=== PATIENT | male | born 1975 | race Caucasian/White ===

== ENCOUNTER 2022-06-18 10:30 | Observation (INO) | payer OTHER ==
[2022-06-18] MEDS ORDERED: BABY ASPIRIN 81 MG CHEW PO ONE (10:48)
[2022-06-18 10:56] LABS: Absolute Neutrophil Ct (ANC) 3.49 x10^3/uL (1.4-6.9); BASOPHIL % 0.5 % (0.0-0.4); Basophil (Absolute #) 0.03 x10^3/uL (0-0.4); Eosinophil % 1.9 % (0.00-5.0); Eosinophil (Absolute #) 0.12 x10^3/uL (0-0.5); Hemoglobin 11.5 g/dL (12.5-18.0); IMMATURE GRAN # 0.02 x10^3u/L (0.00-0.03); IMMATURE GRAN % 0.3 % (0.00-0.4); Lymphocyte (Absolute #) 2.05 x10^3/uL (1.0-4.6); Lymphocytes % 32.3 % (24.0-44.0); Mean Cell Volume 73.6 fL (78-100); Mean Corpuscular Hemoglobin 22.3 pg (26-32); Mean Corpuscular Hgb Concent. 30.3 g/dL (32-36); Mean Platelet Volume 9.9 fL (7.5-11.0); Monocyte (Absolute #) 0.63 x10^3/uL (0.0-1.3); Monocytes % 9.9 % (0.0-12.0); Neutrophil % 55.1 % (36.0-66.0); Platelet Count 259 x10^3/uL (150-450); Red Blood Count 5.16 x10^6/uL (4.1-5.6); Red Cell Distribution Width 16.7 % (11.5-14.0); White Blood Count 6.3 x10^3/uL (4.0-10.5)
--- NOTE | 2022-06-18 11:05 | XRAY ---
Indication: Chest pain. Comparison: None Portable chest demonstrates cardiomegaly. No focal infiltrate, consolidation, or large effusion. Bony thorax intact.
--- NOTE | 2022-06-18 11:12 | ERPHSYRPT ---
- History of Present Illness Historian: patient Exam Limitations: no limitations Patient Subjective Stated Complaint: Chest pain Triage Nursing Assessment: Patient ambulated back to ED and transferred self to bed. Patient A+OX 3. Patient's skin pink, warm and dry. Patient complains of mid chest pain that went up into chest that started around 0955. Patient states he took Rolaids X 2 with slight relief. Patient states during chest pain he felt a heavy pressure to chest with nausea and lightheadness. Patient currently denies pain or discomfort. 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 Pain resolved after 20 minutes. It radiated to his superior chest. Pain was up to a 9/10 and is currently 0/10. It was accompanied by nausea/dyspnea wo vomiting/diaphoresis. CAD/RI/PE are denies, but he has JONAS/HTN/DM/morbid obesity. Cough/fever are also denied. Timing/Duration: other (0950 today) Activities at Onset: rest Quality: pressure Location: substernal Chest Pain Radiation: neck (Superior chest) Severity of Pain-Max: severe Severity of Pain-Current: none Modifying Factors: Improves With: nothing Associated Symptoms: nausea, shortness of breath Prior Chest Pain/Cardiac Workup: no prior chest pain Nitro Today/Relief: no nitro taken today Aspirin Treatment Today: no aspirin today Allergies/Adverse Reactions: Penicillins Allergy (Verified 06/18/22 10:35) Home Medications: Lisinopril 20 mg [Zestril 20 MG] 1 tab PO HS 06/18/22 [History] Hx Tetanus, Diphtheria Vaccination/Date Given: No Hx Influenza Vaccination/Date Given: No Hx Pneumococcal Vaccination/Date Given: No Immunizations Up to Date: Yes Travel Risk - International Travel Have you traveled outside of the country in past 3 weeks: No - Coronavirus Screening Are you exhibiting any of the following symptoms?: No Close contact with a COVID-19 positive Pt in past 14-21 Days: No - Vaccine Status Have you recieved a Covid-19 vaccination: Yes Digital Director: Unknown - Vaccination Dates Dates if Unknown: na - Review of Systems Constitutional: No Symptoms Eyes: No Symptoms Ears, Nose, & Throat: No Symptoms Respiratory: No Symptoms, Dyspnea Cardiac: No Symptoms, Chest Pain Abdominal/Gastrointestinal: No Symptoms, Nausea Genitourinary Symptoms: No Symptoms Musculoskeletal: No Symptoms Skin: No Symptoms Neurological: No Symptoms Psychological: No Symptoms Endocrine: No Symptoms Hematologic/Lymphatic: No Symptoms Immunological/Allergic: No Symptoms - Past Medical History Pertinent Past Medical History: Yes Neurological History: No Pertinent History ENT History: No Pertinent History Cardiac History: Hypertension Respiratory History: No Pertinent History Endocrine Medical History: No Pertinent History Musculoskeletal History: No Pertinent History GI Medical History: No Pertinent History History: No Pertinent History Psycho-Social History: No Pertinent History Male Reproductive Disorders: No Pertinent History - Past Surgical History Past Surgical History: No Neuro Surgical History: No Pertinent History Cardiac: No Pertinent History Respiratory: No Pertinent History Gastrointestinal: No Pertinent History Genitourinary: No Pertinent History Musculoskeletal: No Pertinent History Male Surgical History: No Pertinent History - Social History Smoking Status: Former smoker Exposure to second hand smoke: No Drug Use: none Patient Lives Alone: No - Nursing Vital Signs Nursing Vital Signs: Initial Vital Signs Temperature 98.2 F 06/18/22 10:37 Pulse Rate 86 06/18/22 10:37 Respiratory Rate 17 06/18/22 10:37 Blood Pressure 140/86 06/18/22 10:37 O2 Sat by Pulse Oximetry 96 06/18/22 10:37 Pain Scale Pain Intensity 0 Hypertensive - Physical Exam General Appearance: no apparent distress Eye Exam: PERRL/EOMI, eyes nml inspection Ears, Nose, Throat Exam: normal ENT inspection, TMs normal, pharynx normal, moist mucous membranes Neck Exam: normal inspection, non-tender, supple, full range of motion, No meningismus, No mass, No Brudzinski, No Kernig's Respiratory Exam: normal breath sounds, lungs clear, airway intact Cardiovascular Exam: regular rate/rhythm, normal heart sounds, normal peripheral pulses, capillary refill <2 sec, No murmur Gastrointestinal/Abdomen Exam: soft, normal bowel sounds, No tenderness Back Exam: normal inspection, normal range of motion, No CVA tenderness Extremity Exam: normal inspection, normal range of motion Neurologic Exam: alert, oriented x 3, cooperative, normal mood/affect, nml cerebellar function, nml station & gait, sensation nml, No home aide II-XII nml as te sted Skin Exam: normal color, warm, dry Lymphatic Exam: No adenopathy SpO2 Interpretation: normal SpO2: 96 O2 Delivery: Room Air - Course Nursing assessment & vital signs reviewed: Yes EKG Interpreted by Me: RATE (NSR/rate 88/Normal QT-QTc/Possible old inferior RI/No acute ST segment changes) - Radiology Exams Chest X-ray Interpretation: Reviewed by me, Discussed w/ radiologist (Cardiomegaly/Nothing acute) Ordered Tests: Active Orders 24 hr Category Date Time Status EKG-ER Only STAT Care 06/18/22 10:36 Completed Heart-Healthy Diet Diet 06/18/22 Dinner Active CHEST 1 VIEW (PORTABLE) Stat Exams 06/18/22 10:37 Completed ECHO W/2D AND DOPPLER [US] Routine Exams 06/18/22 16:12 Taken CBC W DIFF Stat Lab 06/18/22 10:55 Completed CMP Stat Lab 06/18/22 10:55 Completed LIPID PROFILE AM.LAB Lab 06/19/22 04:00 Ordered MAGNESIUM Stat Lab 06/18/22 10:55 Completed NT PRO BNPII Stat Lab 06/18/22 10:55 Completed PROTIME WITH INR Stat Lab 06/18/22 10:55 Completed PTT Stat Lab 06/18/22 10:55 Completed TROPONIN Q4H Lab 06/18/22 10:55 Completed TROPONIN Q4H Lab 06/18/22 14:28 Completed TROPONIN Q4H Lab 06/18/22 18:45 Completed Transfer Order Routine Transfer 06/18/22 Completed Medication Summary Generic Name Dose Route Start Last Admin Trade Name Freq PRN Reason Stop Dose Admin Acetaminophen 650 mg 06/18/22 15:06 Acetaminophen 325 Mg Tablet PO 07/18/22 15:05 Q4H PRN PRN PAIN AND/OR FEVER Al Hydrox/Mg Hydrox/Simethicone 30 ml 06/18/22 15:06 Mag Hydrox/Al Hydrox/Simeth 30 Ml Udcup PO 07/18/22 15:05 Q4H PRN PRN INDIGESTION Aspirin 325 mg 06/19/22 10:00 Aspirin 325 Mg Tablet.Ec PO 07/19/22 09:59 DAILY [facility] Enoxaparin Sodium 40 mg 06/18/22 17:00 06/18/22 17:23 Enoxaparin Sodium 40 Mg/0.4 Ml Syringe SQ 07/18/22 16:59 Not Given DAILY BRYSON Famotidine 20 mg 06/18/22 22:00 06/18/22 19:25 Famotidine 20 Mg/1 Vial IV 07/18/22 21:59 20 mg Q12HT BRYSON Administration Lisinopril 20 mg 06/18/22 22:00 06/18/22 19:25 Lisinopril 20 Mg Tablet PO 07/18/22 21:59 20 mg HS BRYSON Administration Magnesium Hydroxide 30 - 60 ml 06/18/22 15:06 Magnesium Hydroxide 30 Ml Udcup PO 07/18/22 15:05 QDP PRN CONSTIPATION Morphine Sulfate 2 mg 06/18/22 15:06 Morphine Sulfate 2 Mg/Ml Inj IV 06/23/22 15:05 .Q15MIN PRN PRN CHEST PAIN Nitroglycerin 0.4 mg 06/18/22 15:06 Nitroglycerin 0.4 Mg Tablet Bottle SL 07/18/22 15:05 .Q5MIN PRN CHEST PAIN Ondansetron HCl 4 mg 06/18/22 15:06 Ondansetron Hcl 4 Mg/2 Ml Vial IV 07/18/22 15:05 Q4H PRN PRN NAUSEA/VOMITING Senna/Docusate Sodium 2 udtab 06/18/22 15:06 Senna/Docusate Sodium 1 Udtab Tablet PO 07/18/22 15:05 BID PRN PRN CONSTIPATION Discontinued Medications Generic Name Dose Route Start Last Admin Trade Name Freq PRN Reason Stop Dose Admin Aspirin 324 mg 06/18/22 10:48 06/18/22 10:50 Aspirin 81 Mg Tab.Chew PO 06/18/22 10:49 324 mg STAT ONE Administration Lab/Rad Data: Laboratory Result Diagrams 06/18/22 10:55 06/18/22 10:55 Laboratory Results 06/18/22 06/18/22 06/18/22 Range/Units 14:28 12:17 10:55 WBC (4.0-10.5) x10^3/uL RBC (4.1-5.6) x10^6/uL Hgb (12.5-18.0) g/dL Hct (42-50) % MCV (78-100) fL MCH (26-32) pg MCHC (32-36) g/dL RDW (11.5-14.0) % Plt Count (150-450) x10^3/uL MPV (7.5-11.0) fL Gran % (36.0-66.0) % Immature Gran % (Auto) (0.00-0.4) % Nucleat RBC Rel Count (0.00-0.1) % Eos # (Auto) (0-0.5) x10^3/uL Immature Gran # (Auto) (0.00-0.03) x10^3u/L Absolute Lymphs (auto) (1.0-4.6) x10^3/uL Absolute Monos (auto) (0.0-1.3) x10^3/uL Absolute Nucleated RBC (0.00-0.01) x10^3u/L Lymphocytes % (24.0-44.0) % Monocytes % (0.0-12.0) % Eosinophils % (0.00-5.0) % Basophils % (0.0-0.4) % Absolute Granulocytes (1.4-6.9) x10^3/uL Basophils # (0-0.4) x10^3/uL PT (9.4-12.5) SECONDS INR (0.8-3.0) APTT (25.1-36.5) SECONDS Sodium (137-145) mmol/L Potassium (3.5-5.1) mmol/L Chloride (98-107) mmol/L Carbon Dioxide (22-30) mmol/L Anion Gap (5-15) MEQ/L BUN (9-20) mg/dL Creatinine (0.66-1.25) mg/dL Estimated GFR ML/MIN Glucose (74-106) mg/dL Calcium (8.4-10.2) mg/dL Magnesium (1.6-2.3) mg/dL Total Bilirubin (0.2-1.3) mg/dL AST (17-59) U/L ALT (0-50) U/L Alkaline Phosphatase (38-126) U/L Troponin I < 0.012 (0.000-0.034) ng/mL NT-Pro-B Natriuret Pep < 20.0 (<300) pg/mL Serum Total Protein (6.3-8.2) g/dL Albumin (3.5-5.0) g/dL Influenza Type A Ag NEGATIVE (NEGATIVE) Influenza Type B Ag NEGATIVE (NEGATIVE) RSV (PCR) NEGATIVE (NEGATIVE) SARS-CoV-2 (PCR) NEGATIVE (NEGATIVE) 06/18/22 06/18/22 06/18/22 Range/Units 10:55 10:55 10:55 WBC (4.0-10.5) x10^3/uL RBC (4.1-5.6) x10^6/uL Hgb (12.5-18.0) g/dL Hct (42-50) % MCV (78-100) fL MCH (26-32) pg MCHC (32-36) g/dL RDW (11.5-14.0) % Plt Count (150-450) x10^3/uL MPV (7.5-11.0) fL Gran % (36.0-66.0) % Immature Gran % (Auto) (0.00-0.4) % Nucleat RBC Rel Count (0.00-0.1) % Eos # (Auto) (0-0.5) x10^3/uL Immature Gran # (Auto) (0.00-0.03) x10^3u/L Absolute Lymphs (auto) (1.0-4.6) x10^3/uL Absolute Monos (auto) (0.0-1.3) x10^3/uL Absolute Nucleated RBC (0.00-0.01) x10^3u/L Lymphocytes % (24.0-44.0) % Monocytes % (0.0-12.0) % Eosinophils % (0.00-5.0) % Basophils % (0.0-0.4) % Absolute Granulocytes (1.4-6.9) x10^3/uL Basophils # (0-0.4) x10^3/uL PT 10.9 (9.4-12.5) SECONDS INR 1.00 (0.8-3.0) APTT 25.0 L (25.1-36.5) SECONDS Sodium 137 (137-145) mmol/L Potassium 4.2 (3.5-5.1) mmol/L Chloride 97 L (98-107) mmol/L Carbon Dioxide 30 (22-30) mmol/L Anion Gap 14.0 (5-15) MEQ/L BUN 18 (9-20) mg/dL Creatinine 0.66 (0.66-1.25) mg/dL Estimated GFR > 60.0 ML/MIN Glucose 110 H (74-106) mg/dL Calcium 9.2 (8.4-10.2) mg/dL Magnesium 1.9 (1.6-2.3) mg/dL Total Bilirubin 0.40 (0.2-1.3) mg/dL AST 33 (17-59) U/L ALT 39 (0-50) U/L Alkaline Phosphatase 72 (38-126) U/L Troponin I < 0.012 (0.000-0.034) ng/mL NT-Pro-B Natriuret Pep (<300) pg/mL Serum Total Protein 7.5 (6.3-8.2) g/dL Albumin 4.1 (3.5-5.0) g/dL Influenza Type A Ag (NEGATIVE) Influenza Type B Ag (NEGATIVE) RSV (PCR) (NEGATIVE) SARS-CoV-2 (PCR) (NEGATIVE) 06/18/22 Range/Units 10:55 WBC 6.3 (4.0-10.5) x10^3/uL RBC 5.16 (4.1-5.6) x10^6/uL Hgb 11.5 L (12.5-18.0) g/dL Hct 38.0 L (42-50) % MCV 73.6 L (78-100) fL MCH 22.3 L (26-32) pg MCHC 30.3 L (32-36) g/dL RDW 16.7 H (11.5-14.0) % Plt Count 259 (150-450) x10^3/uL MPV 9.9 (7.5-11.0) fL Gran % 55.1 (36.0-66.0) % Immature Gran % (Auto) 0.3 (0.00-0.4) % Nucleat RBC Rel Count 0.0 (0.00-0.1) % Eos # (Auto) 0.12 (0-0.5) x10^3/uL Immature Gran # (Auto) 0.02 (0.00-0.03) x10^3u/L Absolute Lymphs (auto) 2.05 (1.0-4.6) x10^3/uL Absolute Monos (auto) 0.63 (0.0-1.3) x10^3/uL Absolute Nucleated RBC 0.00 (0.00-0.01) x10^3u/L Lymphocytes % 32.3 (24.0-44.0) % Monocytes % 9.9 (0.0-12.0) % Eosinophils % 1.9 (0.00-5.0) % Basophils % 0.5 (0.0-0.4) % Absolute Granulocytes 3.49 (1.4-6.9) x10^3/uL Basophils # 0.03 (0-0.4) x10^3/uL PT (9.4-12.5) SECONDS INR (0.8-3.0) APTT (25.1-36.5) SECONDS Sodium (137-145) mmol/L Potassium (3.5-5.1) mmol/L Chloride (98-107) mmol/L Carbon Dioxide (22-30) mmol/L Anion Gap (5-15) MEQ/L BUN (9-20) mg/dL Creatinine (0.66-1.25) mg/dL Estimated GFR ML/MIN Glucose (74-106) mg/dL Calcium (8.4-10.2) mg/dL Magnesium (1.6-2.3) mg/dL Total Bilirubin (0.2-1.3) mg/dL AST (17-59) U/L ALT (0-50) U/L Alkaline Phosphatase (38-126) U/L Troponin I (0.000-0.034) ng/mL NT-Pro-B Natriuret Pep (<300) pg/mL Serum Total Protein (6.3-8.2) g/dL Albumin (3.5-5.0) g/dL Influenza Type A Ag (NEGATIVE) Influenza Type B Ag (NEGATIVE) RSV (PCR) (NEGATIVE) SARS-CoV-2 (PCR) (NEGATIVE) - Progress Progress Note: 06/18/22 15:10 Nursing note and vital signs reviewed No food or housing insecurities noted Lab results/CXR results reviewed and shared w pt Additional history per friend Obs per Dr. Shabazz Heart Score 5 Orders written No chest pain while in ER 06/18/22 15:14 06/18/22 22:34 Discussed with : Kristin Will see patient in: hospital (observation) Counseled pt/family regarding: lab results, diagnosis, rad results Medical Desision Making - Independent Historian Additional History obtained from: Relative/friend - Discussion of managment Care discussed with:: PCP Reviewed:: Test results Agreed on:: Treatment plan, place in obs Will see patient: in hospital - Diagnostic Testing Diagnostic test were ordered, analyzed, and reviewed by me: Yes Radiological Interpretation: Reviewed by me, Discussed w/ radiologist - Risk of complications The pt has a mod risk of morbidity or mortality based on: Need for prescription drug management - Departure Departure Disposition: Observation Clinical Impression: Chest pain Condition: Stable Critical Care Time: No
[2022-06-18 11:13] LABS: ALBUMIN 4.1 g/dL (3.5-5.0); ALKALINE PHOSPHATASE 72 U/L (38-126); BLOOD UREA NITROGEN 18 mg/dL (9-20); CHLORIDE 97 mmol/L (98-107); Calcium 9.2 mg/dL (8.4-10.2); Carbon Dioxide 30 mmol/L (22-30); Creatinine 1 0.66 mg/dL (0.66-1.25); EST GLOMERULAR FILTRATION RATE > 60.0 ML/MIN; Glucose 110 mg/dL (74-106); MAGNESIUM 1.9 mg/dL (1.6-2.3); Potassium 4.2 mmol/L (3.5-5.1); SGOT/AST 33 U/L (17-59); SGPT/ALT 39 U/L (0-50); SODIUM 137 mmol/L (137-145); Total Protein 7.5 g/dL (6.3-8.2)
[2022-06-18 11:15] LABS: PROTIME 10.9 SECONDS (9.4-12.5)
[2022-06-18 12:53] LABS: INFLUENZA A NEGATIVE (NEGATIVE); INFLUENZA B NEGATIVE (NEGATIVE); RESPIRATORY SYNCTIAL VIRUS NEGATIVE (NEGATIVE); SARS-CoV-2 Xpert Express NEGATIVE (NEGATIVE)
[2022-06-18] MEDS ORDERED: Nitrostat 0.4 MG Tablet SL PRN (15:06)
[2022-06-18] MEDS ORDERED: MORPHINE SULFATE 2 MG INJ IV PRN (15:06)
[2022-06-18] MEDS ORDERED: MAALOX ES 30 ML UNIT DOSE PO PRN (15:06)
[2022-06-18] MEDS ORDERED: MILK OF MAGNESIA 30 ML PO PRN (15:06)
[2022-06-18] MEDS ORDERED: Zofran 4 MG/2 ML VIAL IV PRN (15:06)
[2022-06-18] MEDS ORDERED: Senokot-S Tablet PO PRN (15:06)
[2022-06-18] MEDS ORDERED: TYLENOL 325 MG PO PRN (15:06)
[2022-06-18] MEDS ORDERED: ENOXAPARIN SODIUM SQ SCH (17:00)
[2022-06-18] MEDS ORDERED: Zestril 20 MG PO SCH (22:00)
[2022-06-18] MEDS ORDERED: Pepcid 20 MG VIAL IV SCH (22:00)
[2022-06-19 06:04] LABS: Risk Ratio 6.5
[2022-06-19 08:04] VITALS: BP 121/57; PULSE 89; O2SAT 92
--- NOTE | 2022-06-19 09:13 | PCM.SSS ---
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 Pain resolved after 20 minutes. It radiated to his superior chest. Pain was up to a 9/10 and is currently 0/10. It was accompanied by nausea/dyspnea wo vomiting/diaphoresis. CAD/CO/PE are denies, but he has JONAS/HTN/DM/morbid obesity. Cough/fever are also denied. Timing/Duration: other (0950 today) Activities at Onset: rest Quality: pressure Location: substernal Chest Pain Radiation: neck (Superior chest) Severity of Pain-Max: severe Severity of Pain-Current: none Modifying Factors: Improves With: nothing Associated Symptoms: nausea, shortness of breath Prior Chest Pain/Cardiac Workup: no prior chest pain Nitro Today/Relief: no nitro taken today Aspirin Treatment Today: no aspirin today - Review of Systems Constitutional: No Fever, No Chills Eyes: No Symptoms Ears, Nose, & Throat: No Symptoms Respiratory: No Cough, No Short Of Breath Cardiac: Chest Pain, No Edema, No Syncope Abdominal/Gastrointestinal: No Abdominal Pain, No Nausea, No Vomiting, No Diarrhea Genitourinary Symptoms: No Dysuria Musculoskeletal: No Back Pain, No Neck Pain Skin: No Rash Neurological: No Dizziness, No Focal Weakness, No Sensory Changes Psychological: No Symptoms Endocrine: No Symptoms Hematologic/Lymphatic: No Symptoms Immunological/Allergic: No Symptoms Medications & Allergies Home Medications: Home Medication List Lisinopril 20 mg [Zestril 20 MG] 1 tab PO HS 06/18/22 [History Confirmed 06/18/22] Allergies/Adverse Reactions: Allergies Allergy/AdvReac Type Severity Reaction Status Date / Time Penicillins Allergy Verified 06/18/22 10:35 - Past Medical History Past Medical History: Yes Neurological History: No Pertinent History ENT History: No Pertinent History Cardiac History: Hypertension Respiratory History: No Pertinent History Endocrine Medical History: No Pertinent History Musculoskelatal History: No Pertinent History GI Medical History: No Pertinent History History: No Pertinent History Pyscho-Social History: No Pertinent History Male Reproductive Disorders: No Pertinent History - Past Surgical History Past Surgical History: No Neuro Surgical History: No Pertinent History Cardiac History: No Pertinent History Respiratory Surgery: No Pertinent History GI Surgical History: No Pertinent History Genitourinary Surgical Hx: No Pertinent History Musculskeletal Surgical Hx: No Pertinent History Male Surgical History: No Pertinent History - Social History Smoking Status: Former smoker Exposure to second hand smoke: No Alcohol: None Drug Use: none - Physical Exam Vital Signs: Vital Signs - 24 hr Temp Pulse Resp BP Pulse Ox 06/19/22 08:00 97.8 F 89 16 121/57 92 L 06/19/22 04:00 97.8 F 84 18 111/62 96 06/18/22 23:53 97.9 F 79 19 121/61 93 L 06/18/22 22:34 96 06/18/22 20:01 98.4 F 81 20 160/82 96 06/18/22 19:31 98.1 F 06/18/22 16:21 98.1 F 84 18 164/84 96 06/18/22 16:00 98.1 F 84 18 164/84 96 06/18/22 14:49 81 20 133/81 95 06/18/22 13:12 78 20 132/75 98 06/18/22 12:12 87 18 139/66 98 06/18/22 11:40 82 20 120/78 97 06/18/22 10:37 98.2 F 86 17 140/86 96 General Appearance: no apparent distress, alert Neurologic Exam: alert, oriented x 3, cooperative, normal mood/affect, nml cerebellar function, nml station & gait, sensation nml, No motor deficits Eye Exam: PERRL/EOMI, eyes nml inspection Ears, Nose, Throat Exam: normal ENT inspection, TMs normal, pharynx normal, moist mucous membranes Neck Exam: normal inspection, non-tender, supple, full range of motion Respiratory Exam: normal breath sounds, lungs clear, No respiratory distress Cardiovascular Exam: regular rate/rhythm, normal heart sounds, normal peripheral pulses Gastrointestinal/Abdomen Exam: soft, normal bowel sounds, No tenderness, No mass Back Exam: normal inspection, normal range of motion, No CVA tenderness, No vertebral tenderness Extremity Exam: normal inspection, normal range of motion, pelvis stable Skin Exam: normal color, warm, dry, No rash Lymphatic Exam: No adenopathy Results - Labs Lab/Micro Results: Lab Results-Last 24 Hours 06/18/22 06/18/22 06/18/22 Range/Units 10:55 10:55 10:55 WBC 6.3 (4.0-10.5) x10^3/uL RBC 5.16 (4.1-5.6) x10^6/uL Hgb 11.5 L (12.5-18.0) g/dL Hct 38.0 L (42-50) % MCV 73.6 L (78-100) fL MCH 22.3 L (26-32) pg MCHC 30.3 L (32-36) g/dL RDW 16.7 H (11.5-14.0) % Plt Count 259 (150-450) x10^3/uL MPV 9.9 (7.5-11.0) fL Gran % 55.1 (36.0-66.0) % Immature Gran % (Auto) 0.3 (0.00-0.4) % Nucleat RBC Rel Count 0.0 (0.00-0.1) % Eos # (Auto) 0.12 (0-0.5) x10^3/uL Immature Gran # (Auto) 0.02 (0.00-0.03) x10^3u/L Absolute Lymphs (auto) 2.05 (1.0-4.6) x10^3/uL Absolute Monos (auto) 0.63 (0.0-1.3) x10^3/uL Absolute Nucleated RBC 0.00 (0.00-0.01) x10^3u/L Lymphocytes % 32.3 (24.0-44.0) % Monocytes % 9.9 (0.0-12.0) % Eosinophils % 1.9 (0.00-5.0) % Basophils % 0.5 (0.0-0.4) % Absolute Granulocytes 3.49 (1.4-6.9) x10^3/uL Basophils # 0.03 (0-0.4) x10^3/uL PT 10.9 (9.4-12.5) SECONDS INR 1.00 (0.8-3.0) APTT 25.0 L (25.1-36.5) SECONDS Sodium 137 (137-145) mmol/L Potassium 4.2 (3.5-5.1) mmol/L Chloride 97 L (98-107) mmol/L Carbon Dioxide 30 (22-30) mmol/L Anion Gap 14.0 (5-15) MEQ/L BUN 18 (9-20) mg/dL Creatinine 0.66 (0.66-1.25) mg/dL Estimated GFR > 60.0 ML/MIN Glucose 110 H (74-106) mg/dL Calcium 9.2 (8.4-10.2) mg/dL Magnesium 1.9 (1.6-2.3) mg/dL Total Bilirubin 0.40 (0.2-1.3) mg/dL AST 33 (17-59) U/L ALT 39 (0-50) U/L Alkaline Phosphatase 72 (38-126) U/L Troponin I (0.000-0.034) ng/mL NT-Pro-B Natriuret Pep (<300) pg/mL Serum Total Protein 7.5 (6.3-8.2) g/dL Albumin 4.1 (3.5-5.0) g/dL Triglycerides (30-150) mg/dL Cholesterol (50-200) mg/dL LDL Cholesterol (30-100) mg/dL HDL Cholesterol (40-60) mg/dL Heart Disease Risk Ratio Influenza Type A Ag (NEGATIVE) Influenza Type B Ag (NEGATIVE) RSV (PCR) (NEGATIVE) SARS-CoV-2 (PCR) (NEGATIVE) 06/18/22 06/18/22 06/18/22 Range/Units 10:55 10:55 12:17 WBC (4.0-10.5) x10^3/uL RBC (4.1-5.6) x10^6/uL Hgb (12.5-18.0) g/dL Hct (42-50) % MCV (78-100) fL MCH (26-32) pg MCHC (32-36) g/dL RDW (11.5-14.0) % Plt Count (150-450) x10^3/uL MPV (7.5-11.0) fL Gran % (36.0-66.0) % Immature Gran % (Auto) (0.00-0.4) % Nucleat RBC Rel Count (0.00-0.1) % Eos # (Auto) (0-0.5) x10^3/uL Immature Gran # (Auto) (0.00-0.03) x10^3u/L Absolute Lymphs (auto) (1.0-4.6) x10^3/uL Absolute Monos (auto) (0.0-1.3) x10^3/uL Absolute Nucleated RBC (0.00-0.01) x10^3u/L Lymphocytes % (24.0-44.0) % Monocytes % (0.0-12.0) % Eosinophils % (0.00-5.0) % Basophils % (0.0-0.4) % Absolute Granulocytes (1.4-6.9) x10^3/uL Basophils # (0-0.4) x10^3/uL PT (9.4-12.5) SECONDS INR (0.8-3.0) APTT (25.1-36.5) SECONDS Sodium (137-145) mmol/L Potassium (3.5-5.1) mmol/L Chloride (98-107) mmol/L Carbon Dioxide (22-30) mmol/L Anion Gap (5-15) MEQ/L BUN (9-20) mg/dL Creatinine (0.66-1.25) mg/dL Estimated GFR ML/MIN Glucose (74-106) mg/dL Calcium (8.4-10.2) mg/dL Magnesium (1.6-2.3) mg/dL Total Bilirubin (0.2-1.3) mg/dL AST (17-59) U/L ALT (0-50) U/L Alkaline Phosphatase (38-126) U/L Troponin I < 0.012 (0.000-0.034) ng/mL NT-Pro-B Natriuret Pep < 20.0 (<300) pg/mL Serum Total Protein (6.3-8.2) g/dL Albumin (3.5-5.0) g/dL Triglycerides (30-150) mg/dL Cholesterol (50-200) mg/dL LDL Cholesterol (30-100) mg/dL HDL Cholesterol (40-60) mg/dL Heart Disease Risk Ratio Influenza Type A Ag NEGATIVE (NEGATIVE) Influenza Type B Ag NEGATIVE (NEGATIVE) RSV (PCR) NEGATIVE (NEGATIVE) SARS-CoV-2 (PCR) NEGATIVE (NEGATIVE) 04/06/18/22 06/19/22 Range/Units 14:28 18:45 05:23 WBC (4.0-10.5) x10^3/uL RBC (4.1-5.6) x10^6/uL Hgb (12.5-18.0) g/dL Hct (42-50) % MCV (78-100) fL MCH (26-32) pg MCHC (32-36) g/dL RDW (11.5-14.0) % Plt Count (150-450) x10^3/uL MPV (7.5-11.0) fL Gran % (36.0-66.0) % Immature Gran % (Auto) (0.00-0.4) % Nucleat RBC Rel Count (0.00-0.1) % Eos # (Auto) (0-0.5) x10^3/uL Immature Gran # (Auto) (0.00-0.03) x10^3u/L Absolute Lymphs (auto) (1.0-4.6) x10^3/uL Absolute Monos (auto) (0.0-1.3) x10^3/uL Absolute Nucleated RBC (0.00-0.01) x10^3u/L Lymphocytes % (24.0-44.0) % Monocytes % (0.0-12.0) % Eosinophils % (0.00-5.0) % Basophils % (0.0-0.4) % Absolute Granulocytes (1.4-6.9) x10^3/uL Basophils # (0-0.4) x10^3/uL PT (9.4-12.5) SECONDS INR (0.8-3.0) APTT (25.1-36.5) SECONDS Sodium (137-145) mmol/L Potassium (3.5-5.1) mmol/L Chloride (98-107) mmol/L Carbon Dioxide (22-30) mmol/L Anion Gap (5-15) MEQ/L BUN (9-20) mg/dL Creatinine (0.66-1.25) mg/dL Estimated GFR ML/MIN Glucose (74-106) mg/dL Calcium (8.4-10.2) mg/dL Magnesium (1.6-2.3) mg/dL Total Bilirubin (0.2-1.3) mg/dL AST (17-59) U/L ALT (0-50) U/L Alkaline Phosphatase (38-126) U/L Troponin I < 0.012 < 0.012 (0.000-0.034) ng/mL NT-Pro-B Natriuret Pep (<300) pg/mL Serum Total Protein (6.3-8.2) g/dL Albumin (3.5-5.0) g/dL Triglycerides 172 H (30-150) mg/dL Cholesterol 186 (50-200) mg/dL LDL Cholesterol 121 H (30-100) mg/dL HDL Cholesterol 29 L (40-60) mg/dL Heart Disease Risk Ratio 6.5 Influenza Type A Ag (NEGATIVE) Influenza Type B Ag (NEGATIVE) RSV (PCR) (NEGATIVE) SARS-CoV-2 (PCR) (NEGATIVE) - Radiology Impressions Radiology Exams & Impressions: Radiology Procedures Category Date Time Status CHEST 1 VIEW (PORTABLE) Stat Exams 06/18/22 10:37 Completed ECHO W/2D AND DOPPLER [US] Routine Exams 06/18/22 16:12 Taken - Other Procedures and Tests Respiratory Therapy 06/20/22 05:00 EKG ONCE 06/21/22 05:00 EKG ONCE Assessment/Plan (1) Chest pain Current Visit: Yes Status: Acute Code(s): R07.9 - CHEST PAIN, UNSPECIFIED Hospital Summary - Hospital Course Hospital Course: Chief Complaint Diagnosis chest pain rule out Allergies Allergy/AdvReac Type Severity Reaction Status Date / Time Penicillins Allergy Verified 06/18/22 10:35 Vital Signs (Last 24 hours) Temp Pulse Resp BP Pulse Ox 06/19/22 08:00 97.8 F 89 16 121/57 92 L 06/19/22 04:00 97.8 F 84 18 111/62 96 06/18/22 23:53 97.9 F 79 19 121/61 93 L 06/18/22 22:34 96 06/18/22 20:01 98.4 F 81 20 160/82 96 06/18/22 19:31 98.1 F 06/18/22 16:21 98.1 F 84 18 164/84 96 06/18/22 16:00 98.1 F 84 18 164/84 96 06/18/22 14:49 81 20 133/81 95 06/18/22 13:12 78 20 132/75 98 06/18/22 12:12 87 18 139/66 98 06/18/22 11:40 82 20 120/78 97 06/18/22 10:37 98.2 F 86 17 140/86 96 Home Medications Medication Instructions Recorded Confirmed Last Taken Type Lisinopril 20 mg [Zestril 20 1 tab PO HS 06/18/22 06/18/22 06/17/22 History MG] Current Medications Generic Name Dose Route Start Last Admin Trade Name Freq PRN Reason Stop Dose Admin Acetaminophen 650 mg 06/18/22 15:06 Acetaminophen 325 Mg Tablet PO 07/18/22 15:05 Q4H PRN PRN PAIN AND/OR FEVER Al Hydrox/Mg Hydrox/Simethicone 30 ml 06/18/22 15:06 Mag Hydrox/Al Hydrox/Simeth 30 Ml Udcup PO 07/18/22 15:05 Q4H PRN PRN INDIGESTION Aspirin 325 mg 06/19/22 10:00 Aspirin 325 Mg Tablet.Ec PO 07/19/22 09:59 DAILY BRYSON Enoxaparin Sodium 40 mg 06/18/22 17:00 06/18/22 17:23 Enoxaparin Sodium 40 Mg/0.4 Ml Syringe SQ 07/18/22 16:59 Not Given DAILY BRYSON Famotidine 20 mg 06/18/22 22:00 06/18/22 19:25 Famotidine 20 Mg/1 Vial IV 07/18/22 21:59 20 mg Q12HT BRYSON Administration Lisinopril 20 mg 06/18/22 22:00 06/18/22 19:25 Lisinopril 20 Mg Tablet PO 07/18/22 21:59 20 mg HS BRYSON Administration Magnesium Hydroxide 30 - 60 ml 06/18/22 15:06 Magnesium Hydroxide 30 Ml Udcup PO 07/18/22 15:05 QDP PRN CONSTIPATION Morphine Sulfate 2 mg 06/18/22 15:06 Morphine Sulfate 2 Mg/Ml Inj IV 06/23/22 15:05 .Q15MIN PRN PRN CHEST PAIN Nitroglycerin 0.4 mg 06/18/22 15:06 Nitroglycerin 0.4 Mg Tablet Bottle SL 07/18/22 15:05 .Q5MIN PRN CHEST PAIN Ondansetron HCl 4 mg 06/18/22 15:06 Ondansetron Hcl 4 Mg/2 Ml Vial IV 07/18/22 15:05 Q4H PRN PRN NAUSEA/VOMITING Senna/Docusate Sodium 2 udtab 06/18/22 15:06 Senna/Docusate Sodium 1 Udtab Tablet PO 07/18/22 15:05 BID PRN PRN CONSTIPATION Discontinued Medications Generic Name Dose Route Start Last Admin Trade Name Abdulkadir PRN Reason Stop Dose Admin Aspirin 324 mg 06/18/22 10:48 06/18/22 10:50 Aspirin 81 Mg Tab.Chew PO 06/18/22 10:49 324 mg STAT ONE Administration Intake & Output (Last 24 hours) 06/16/22 06/17/22 06/18/22 06/19/22 11:59 11:59 11:59 11:59 Intake Total 1070 Balance 1070 Weight 192.9 kg 191 kg Laboratory Results (Last 24 hours) 06/19/22 06/18/22 06/18/22 05:23 18:45 14:28 WBC RBC Hgb Hct MCV MCH MCHC RDW Plt Count MPV Gran % Immature Gran % (Auto) Nucleat RBC Rel Count Eos # (Auto) Immature Gran # (Auto) Absolute Lymphs (auto) Absolute Monos (auto) Absolute Nucleated RBC Lymphocytes % Monocytes % Eosinophils % Basophils % Absolute Granulocytes Basophils # PT INR APTT Sodium Potassium Chloride Carbon Dioxide Anion Gap BUN Creatinine Estimated GFR Glucose Calcium Magnesium Total Bilirubin AST ALT Alkaline Phosphatase Troponin I < 0.012 < 0.012 NT-Pro-B Natriuret Pep Serum Total Protein Albumin Triglycerides 172 H Cholesterol 186 LDL Cholesterol 121 H HDL Cholesterol 29 L Heart Disease Risk Ratio 6.5 Influenza Type A Ag Influenza Type B Ag RSV (PCR) SARS-CoV-2 (PCR) 06/18/22 06/18/22 06/18/22 12:17 10:55 10:55 WBC RBC Hgb Hct MCV MCH MCHC RDW Plt Count MPV Gran % Immature Gran % (Auto) Nucleat RBC Rel Count Eos # (Auto) Immature Gran # (Auto) Absolute Lymphs (auto) Absolute Monos (auto) Absolute Nucleated RBC Lymphocytes % Monocytes % Eosinophils % Basophils % Absolute Granulocytes Basophils # PT INR APTT Sodium Potassium Chloride Carbon Dioxide Anion Gap BUN Creatinine Estimated GFR Glucose Calcium Magnesium Total Bilirubin AST ALT Alkaline Phosphatase Troponin I < 0.012 NT-Pro-B Natriuret Pep < 20.0 Serum Total Protein Albumin Triglycerides Cholesterol LDL Cholesterol HDL Cholesterol Heart Disease Risk Ratio Influenza Type A Ag NEGATIVE Influenza Type B Ag NEGATIVE RSV (PCR) NEGATIVE SARS-CoV-2 (PCR) NEGATIVE 06/18/22 06/18/22 06/18/22 10:55 10:55 10:55 WBC 6.3 RBC 5.16 Hgb 11.5 L Hct 38.0 L MCV 73.6 L MCH 22.3 L MCHC 30.3 L RDW 16.7 H Plt Count 259 MPV 9.9 Gran % 55.1 Immature Gran % (Auto) 0.3 Nucleat RBC Rel Count 0.0 Eos # (Auto) 0.12 Immature Gran # (Auto) 0.02 Absolute Lymphs (auto) 2.05 Absolute Monos (auto) 0.63 Absolute Nucleated RBC 0.00 Lymphocytes % 32.3 Monocytes % 9.9 Eosinophils % 1.9 Basophils % 0.5 Absolute Granulocytes 3.49 Basophils # 0.03 PT 10.9 INR 1.00 APTT 25.0 L Sodium 137 Potassium 4.2 Chloride 97 L Carbon Dioxide 30 Anion Gap 14.0 BUN 18 Creatinine 0.66 Estimated GFR > 60.0 Glucose 110 H Calcium 9.2 Magnesium 1.9 Total Bilirubin 0.40 AST 33 ALT 39 Alkaline Phosphatase 72 Troponin I NT-Pro-B Natriuret Pep Serum Total Protein 7.5 Albumin 4.1 Triglycerides Cholesterol LDL Cholesterol HDL Cholesterol Heart Disease Risk Ratio Influenza Type A Ag Influenza Type B Ag RSV (PCR) SARS-CoV-2 (PCR) Orders (Last 24 hours) Category Date Time Status Bedrest with BRP/BSC ROUTINE Activity 06/18/22 15:06 Active Code Status Order ROUTINE Care 06/18/22 15:06 Active EKG-ER Only STAT Care 06/18/22 10:36 Completed IV Care Q6H Care 06/18/22 15:06 Active Implement Chest Pain Pathway ROUTINE Care 06/18/22 15:[address] in Observation ROUTINE Care 06/18/22 15:06 Active Berto Jacobson, Britney ROUTINE Care 06/18/22 15:06 Active Telemetry q6h Care 06/18/22 15:06 Active Vital Signs Q4H Care 06/18/22 15:06 Active Weight,Daily 0600 Care 06/18/22 15:06 Active Heart-Healthy Diet Diet 06/18/22 Dinner Active Discharge Routine Discharge 06/19/22 Ordered CHEST 1 VIEW (PORTABLE) Stat Exams 06/18/22 10:37 Completed ECHO W/2D AND DOPPLER [US] Routine Exams 06/18/22 16:12 Taken CBC W DIFF Stat Lab 06/18/22 10:55 Completed CMP Stat Lab 06/18/22 10:55 Completed COVID/FLU/RSV Panel Stat Lab 06/18/22 12:17 Completed LIPID PROFILE AM.LAB Lab 06/19/22 05:23 Completed MAGNESIUM Stat Lab 06/18/22 10:55 Completed NT PRO BNPII Stat Lab 06/18/22 10:55 Completed PROTIME WITH INR Stat Lab 06/18/22 10:55 Completed PTT Stat Lab 06/18/22 10:55 Completed TROPONIN Q4H Lab 06/18/22 10:55 Completed TROPONIN Q4H Lab 06/18/22 14:28 Completed TROPONIN Q4H Lab 06/18/22 18:45 Completed Acetaminophen 325 mg [Tylenol 325 mg] Med 06/18/22 15:06 Active 650 mg PO Q4H PRN PRN Aspirin 81 gm Chew [Baby Aspirin 81 mg Chew] Med 06/18/22 10:48 Discontinued 324 mg PO STAT ONE Aspirin EC 325 mg [Ecotrin 325 MG] Med 06/19/22 10:00 Active 325 mg PO DAILY Enoxaparin Sodium [Enoxaparin Sodium] Med 06/18/22 17:00 Active 40 mg SQ DAILY Famotidine 20 mg Vial [Pepcid 20 MG VIAL] Med 06/18/22 22:00 Active 20 mg IV Q12HT Lisinopril 20 mg [Zestril 20 MG] Med 06/18/22 22:00 Active 20 mg PO HS Mag Hydrox/Al Hydrox/Simeth [Maalox Es 30 ml Unit Med 06/18/22 15:06 Active Dose] 30 ml PO Q4H PRN PRN Magnesium Hydroxide 30 ml [Milk of Magnesia 30 ml Med 06/18/22 15:06 Active ] 30 - 60 ml PO QDP PRN Morphine Sulfate 2 mg Inj Med 06/18/22 15:06 Active 2 mg IV .Q15MIN PRN PRN Nitroglycerin 0.4 mg Tablet [Nitrostat 0.4 MG Tablet Med 06/18/22 15:06 Active ] 0.4 mg SL .Q5MIN PRN Ondansetron HCl 4 mg/2 ml [Zofran 4 MG/2 ML VIAL] Med 06/18/22 15:06 Active 4 mg IV Q4H PRN PRN Senna/Docusate Sodium Tab [Senokot-S Tablet] Med 06/18/22 15:06 Active 2 udtab PO BID PRN PRN EKG ONCE RT 06/18/22 18:30 Completed EKG ONCE RT 06/19/22 05:00 Completed EKG ONCE RT 06/20/22 05:00 Active EKG ONCE RT 06/21/22 05:00 Active EKG Q8HX2,QAMX3,PRN RT 06/18/22 15:06 Completed Patient Care Notes (Last 24 hours) 06/18/22 19:24 Nursing Note by Esvin Lewis Received pt sitting in chair. pt requesting shower. pt requesting 2100 meds at this time. Initialized on 06/18/22 19:24 - END OF NOTE - Vitals & Intake/Output Vital Signs: Vital Signs Temperature 97.8 F 06/19/22 08:00 Pulse Rate 89 06/19/22 08:00 Respiratory Rate 16 06/19/22 08:00 Blood Pressure 121/57 06/19/22 08:00 O2 Sat by Pulse Oximetry 92 L 06/19/22 08:00 Intake & Output: Intake & Output 06/16/22 06/17/22 06/18/22 06/19/22 11:59 11:59 11:59 11:59 Intake Total 1070 Balance 1070 Weight 192.9 kg 191 kg - Lab Result Diagrams: 06/18/22 10:55 06/18/22 10:55 Lab Results-Last 24 Hrs: Lab Results-Last 24 Hours 06/18/22 06/18/22 06/18/22 Range/Units 10:55 10:55 10:55 WBC 6.3 (4.0-10.5) x10^3/uL RBC 5.16 (4.1-5.6) x10^6/uL Hgb 11.5 L (12.5-18.0) g/dL Hct 38.0 L (42-50) % MCV 73.6 L (78-100) fL MCH 22.3 L (26-32) pg MCHC 30.3 L (32-36) g/dL RDW 16.7 H (11.5-14.0) % Plt Count 259 (150-450) x10^3/uL MPV 9.9 (7.5-11.0) fL Gran % 55.1 (36.0-66.0) % Immature Gran % (Auto) 0.3 (0.00-0.4) % Nucleat RBC Rel Count 0.0 (0.00-0.1) % Eos # (Auto) 0.12 (0-0.5) x10^3/uL Immature Gran # (Auto) 0.02 (0.00-0.03) x10^3u/L Absolute Lymphs (auto) 2.05 (1.0-4.6) x10^3/uL Absolute Monos (auto) 0.63 (0.0-1.3) x10^3/uL Absolute Nucleated RBC 0.00 (0.00-0.01) x10^3u/L Lymphocytes % 32.3 (24.0-44.0) % Monocytes % 9.9 (0.0-12.0) % Eosinophils % 1.9 (0.00-5.0) % Basophils % 0.5 (0.0-0.4) % Absolute Granulocytes 3.49 (1.4-6.9) x10^3/uL Basophils # 0.03 (0-0.4) x10^3/uL PT 10.9 (9.4-12.5) SECONDS INR 1.00 (0.8-3.0) APTT 25.0 L (25.1-36.5) SECONDS Sodium 137 (137-145) mmol/L Potassium 4.2 (3.5-5.1) mmol/L Chloride 97 L (98-107) mmol/L Carbon Dioxide 30 (22-30) mmol/L Anion Gap 14.0 (5-15) MEQ/L BUN 18 (9-20) mg/dL Creatinine 0.66 (0.66-1.25) mg/dL Estimated GFR > 60.0 ML/MIN Glucose 110 H (74-106) mg/dL Calcium 9.2 (8.4-10.2) mg/dL Magnesium 1.9 (1.6-2.3) mg/dL Total Bilirubin 0.40 (0.2-1.3) mg/dL AST 33 (17-59) U/L ALT 39 (0-50) U/L Alkaline Phosphatase 72 (38-126) U/L Troponin I (0.000-0.034) ng/mL NT-Pro-B Natriuret Pep (<300) pg/mL Serum Total Protein 7.5 (6.3-8.2) g/dL Albumin 4.1 (3.5-5.0) g/dL Triglycerides (30-150) mg/dL Cholesterol (50-200) mg/dL LDL Cholesterol (30-100) mg/dL HDL Cholesterol (40-60) mg/dL Heart Disease Risk Ratio Influenza Type A Ag (NEGATIVE) Influenza Type B Ag (NEGATIVE) RSV (PCR) (NEGATIVE) SARS-CoV-2 (PCR) (NEGATIVE) 06/18/22 06/18/22 06/18/22 Range/Units 10:55 10:55 12:17 WBC (4.0-10.5) x10^3/uL RBC (4.1-5.6) x10^6/uL Hgb (12.5-18.0) g/dL Hct (42-50) % MCV (78-100) fL MCH (26-32) pg MCHC (32-36) g/dL RDW (11.5-14.0) % Plt Count (150-450) x10^3/uL MPV (7.5-11.0) fL Gran % (36.0-66.0) % Immature Gran % (Auto) (0.00-0.4) % Nucleat RBC Rel Count (0.00-0.1) % Eos # (Auto) (0-0.5) x10^3/uL Immature Gran # (Auto) (0.00-0.03) x10^3u/L Absolute Lymphs (auto) (1.0-4.6) x10^3/uL Absolute Monos (auto) (0.0-1.3) x10^3/uL Absolute Nucleated RBC (0.00-0.01) x10^3u/L Lymphocytes % (24.0-44.0) % Monocytes % (0.0-12.0) % Eosinophils % (0.00-5.0) % Basophils % (0.0-0.4) % Absolute Granulocytes (1.4-6.9) x10^3/uL Basophils # (0-0.4) x10^3/uL PT (9.4-12.5) SECONDS INR (0.8-3.0) APTT (25.1-36.5) SECONDS Sodium (137-145) mmol/L Potassium (3.5-5.1) mmol/L Chloride (98-107) mmol/L Carbon Dioxide (22-30) mmol/L Anion Gap (5-15) MEQ/L BUN (9-20) mg/dL Creatinine (0.66-1.25) mg/dL Estimated GFR ML/MIN Glucose (74-106) mg/dL Calcium (8.4-10.2) mg/dL Magnesium (1.6-2.3) mg/dL Total Bilirubin (0.2-1.3) mg/dL AST (17-59) U/L ALT (0-50) U/L Alkaline Phosphatase (38-126) U/L Troponin I < 0.012 (0.000-0.034) ng/mL NT-Pro-B Natriuret Pep < 20.0 (<300) pg/mL Serum Total Protein (6.3-8.2) g/dL Albumin (3.5-5.0) g/dL Triglycerides (30-150) mg/dL Cholesterol (50-200) mg/dL LDL Cholesterol (30-100) mg/dL HDL Cholesterol (40-60) mg/dL Heart Disease Risk Ratio Influenza Type A Ag NEGATIVE (NEGATIVE) Influenza Type B Ag NEGATIVE (NEGATIVE) RSV (PCR) NEGATIVE (NEGATIVE) SARS-CoV-2 (PCR) NEGATIVE (NEGATIVE) 06/18/22 06/18/22 06/19/22 Range/Units 14:28 18:45 05:23 WBC (4.0-10.5) x10^3/uL RBC (4.1-5.6) x10^6/uL Hgb (12.5-18.0) g/dL Hct (42-50) % MCV (78-100) fL MCH (26-32) pg MCHC (32-36) g/dL RDW (11.5-14.0) % Plt Count (150-450) x10^3/uL MPV (7.5-11.0) fL Gran % (36.0-66.0) % Immature Gran % (Auto) (0.00-0.4) % Nucleat RBC Rel Count (0.00-0.1) % Eos # (Auto) (0-0.5) x10^3/uL Immature Gran # (Auto) (0.00-0.03) x10^3u/L Absolute Lymphs (auto) (1.0-4.6) x10^3/uL Absolute Monos (auto) (0.0-1.3) x10^3/uL Absolute Nucleated RBC (0.00-0.01) x10^3u/L Lymphocytes % (24.0-44.0) % Monocytes % (0.0-12.0) % Eosinophils % (0.00-5.0) % Basophils % (0.0-0.4) % Absolute Granulocytes (1.4-6.9) x10^3/uL Basophils # (0-0.4) x10^3/uL PT (9.4-12.5) SECONDS INR (0.8-3.0) APTT (25.1-36.5) SECONDS Sodium (137-145) mmol/L Potassium (3.5-5.1) mmol/L Chloride (98-107) mmol/L Carbon Dioxide (22-30) mmol/L Anion Gap (5-15) MEQ/L BUN (9-20) mg/dL Creatinine (0.66-1.25) mg/dL Estimated GFR ML/MIN Glucose (74-106) mg/dL Calcium (8.4-10.2) mg/dL Magnesium (1.6-2.3) mg/dL Total Bilirubin (0.2-1.3) mg/dL AST (17-59) U/L ALT (0-50) U/L Alkaline Phosphatase (38-126) U/L Troponin I < 0.012 < 0.012 (0.000-0.034) ng/mL NT-Pro-B Natriuret Pep (<300) pg/mL Serum Total Protein (6.3-8.2) g/dL Albumin (3.5-5.0) g/dL Triglycerides 172 H (30-150) mg/dL Cholesterol 186 (50-200) mg/dL LDL Cholesterol 121 H (30-100) mg/dL HDL Cholesterol 29 L (40-60) mg/dL Heart Disease Risk Ratio 6.5 Influenza Type A Ag (NEGATIVE) Influenza Type B Ag (NEGATIVE) RSV (PCR) (NEGATIVE) SARS-CoV-2 (PCR) (NEGATIVE) - Radiology Exams Ordered Rad Exams-Entire Visit: Radiology Procedures Category Date Time Status CHEST 1 VIEW (PORTABLE) Stat Exams 06/18/22 10:37 Completed ECHO W/2D AND DOPPLER [US] Routine Exams 06/18/22 16:12 Taken - Procedures and Test Procedures and Tests throughout Hospitalization: Therapy Orders & Screens 06/18/22 15:06 EKG [id number],QAMX3,PRN Comment: 06/18/22 18:30 EKG ONCE Comment: 06/19/22 05:00 EKG ONCE Comment: 06/20/22 05:00 EKG ONCE Comment: 06/21/22 05:00 EKG ONCE Comment: - Discharge Discharge Date: 06/19/22 Disposition: Home, Self-Care Condition: Stable Prescriptions: Continue Lisinopril 20 mg [Zestril 20 MG] 1 tab PO HS Instructions: Chest Pain (DC) Follow up with: PARMJIT HAMMOND MD [Primary Care Provider] - Call for Appointment
[2022-06-19] MEDS ORDERED: Ecotrin 325 MG PO SCH (10:00)
== END 2022-06-19 09:10 | disposition home or self-care (01) ==
LOC: ED 10:30 → MED SURG 16:10
PROVIDERS: ADMIT General Practice; ATTEND General Practice
DX: R07.9 Chest pain, unspecified (principal); I10 Essential (primary) hypertension; E11.9 Type 2 diabetes mellitus without complications; E66.9 Obesity, unspecified; Z79.899 Other long term (current) drug therapy; Z20.828 Contact with and (suspected) exposure to other viral communicable diseases
CPT/HCPCS: 0241U; 36415; 71045; 80053; 80061; 83721; 83735; 83880; 84484; 85025; 85610; 85730; 93005; 93306; 99284; 93268; G0379; A9270-GY; G0378